=== PATIENT | female | born 1945 | race Caucasian/White ===

== ENCOUNTER → 2017-01-07 | Outpatient (CLI) | payer MEDICARE, BC ==
[~2017-01-07] MED LIST: MAXZIDE; PREDNISONE1 MG PO
== END ==
LOC: MC.RAD 10:55
DX: Z12.31 Encounter for screening mammogram for malignant neoplasm of breast (principal); N63 Unspecified lump in breast

== ENCOUNTER → 2017-01-09 | Outpatient (CLI) | payer MEDICARE, BC | LOC: MC.RAD 13:35 | DX: N60.02 Solitary cyst of left breast (principal) ==

== ENCOUNTER → 2018-08-14 | Outpatient (CLI) | payer MEDICARE, BC | LOC: MC.RAD 11:00 | DX: Z12.31 Encounter for screening mammogram for malignant neoplasm of breast (principal) ==

== ENCOUNTER 2019-06-21 10:19 | Day surgery (SDC) | payer MEDICARE, BC ==
[~2019-06-21] VITALS: Ht 160 cm; Wt 79.3 kg
--- NOTE | 2019-06-21 11:18 | NUR ---
community health worker met with patient and spouse and provided written and verbal education on durable power of desktop administrator for health care and living will. Worker assisted patient in completion of both documents and provided copies and original to patient. Worker obtained copies and they were placed on the chart.
--- NOTE | 2019-06-21 11:20 | NUR ---
TO RM 8 - [employer] HERE TO TALK WITH PATIENT AND CONCERNING ADVANCE DIRECTIVES.
[2019-06-21 11:26] VITALS: BP 154/69; PULSE 94; TEMP 97.6
[2019-06-21] MEDS ORDERED: VENTOLIN0.09 MG IH (11:43)
[2019-06-21] MEDS ORDERED: TYLENOL 500MG500 MG PO (11:43)
[2019-06-21] MEDS ORDERED: ASPIRIN E.C. 8181 MG PO (11:44)
[2019-06-21] MEDS ORDERED: NORVASC2.5 MG PO (11:44)
[2019-06-21] MEDS ORDERED: CELEBREX 1100 MG/CAP PO (11:45)
[2019-06-21] MEDS ORDERED: PULMICORT180 MCG/Ac IH (11:45)
[2019-06-21] MEDS ORDERED: JUBLIA TOP (11:54)
[2019-06-21] MEDS ORDERED: LOPROX CR 15GM TOP (11:54)
[2019-06-21] MEDS ORDERED: FLONASEALLERGY NS (11:55)
[2019-06-21] MEDS ORDERED: PRINZIDE 25 MG-1 TAB PO (11:55)
[2019-06-21] MEDS ORDERED: OMEGA-31 SGL PO (11:57)
[2019-06-21] MEDS ORDERED: PREDNISONE10 MG (11:58)
[2019-06-21] MEDS ORDERED: ZANTAC 150MG T150 MG PO (11:59)
[2019-06-21] MEDS ORDERED: ZANAFLEX2 MG PO (11:59)
--- NOTE | 2019-06-21 12:04 | NUR ---
TAKEN TO PACU TO HAVE A BLOCK PLACED BY SAROJ MONTESINOS.
[2019-06-21] MEDS ORDERED: ULTRAM 50MG TAB50 MG PO (14:12)
[2019-06-21 15:10] VITALS: BP 138/75; PULSE 82; TEMP 97.3
--- NOTE | 2019-06-21 15:10 | NUR ---
Patient arrives back to [facility] drowsy, radha nausea, complains of right shoulder pain 4/10. Patient monitor and O2 applied, vitals stable. Patient's spouse at bedside. Bandaids x3 across patient upper abdomen, clean/dry/intact. Patient given water and crackers. Patient educated that she needs to wake up a little more and get some food in her stomach before getting a pain pill.
[2019-06-21 15:25] VITALS: BP 129/65; PULSE 78
[2019-06-21 15:40] VITALS: BP 131/65; PULSE 82
--- NOTE | 2019-06-21 15:40 | NUR ---
Patient waking up more at this time and starting to eat and drink well. Oxygen therapy discontinued at this time. Vitals stable. Patient educated to cough and deep breathe frequently.
[2019-06-21 15:55] VITALS: BP 120/62; PULSE 80
--- NOTE | 2019-06-21 16:00 | NUR ---
Patient alert at this time and has tolerated water and crackers well, denies nausea. Still reports mild pain in right shoulder. Patient given PRN pain medication. Vitals stable.
[2019-06-21 16:15] VITALS: PULSE 80
--- NOTE | 2019-06-21 16:20 | NUR ---
Patient reports pain is getting better and that she ready to go home.
--- NOTE | 2019-06-21 16:25 | NUR ---
Dismissal instructions gone over with patient and patient's spouse. Both verbalize understanding and all questions answered.
--- NOTE | 2019-06-21 16:30 | NUR ---
Patient discharged to home via wheelchair to private vehicle that her is driving without any complications. Patient and family leave thanking staff for services.
== END 2019-06-21 16:30 | disposition home or self-care (01) ==
LOC: SDCO 10:19
DX: K40.90 Unilateral inguinal hernia, without obstruction or gangrene, not specified as recurrent (principal); D17.79 Benign lipomatous neoplasm of other sites; K66.0 Peritoneal adhesions (postprocedural) (postinfection); I10 Essential (primary) hypertension; J45.909 Unspecified asthma, uncomplicated; E78.5 Hyperlipidemia, unspecified; M19.90 Unspecified osteoarthritis, unspecified site; Z90.89 Acquired absence of other organs; Z79.899 Other long term (current) drug therapy; Z85.828 Personal history of other malignant neoplasm of skin; Z79.82 Long term (current) use of aspirin; Z80.42 Family history of malignant neoplasm of prostate; Z80.41 Family history of malignant neoplasm of ovary; Z82.3 Family history of stroke
CPT/HCPCS: C1781; J0690; J1100; J1170; J1885; J2250; J2405; J2704; J2795; J3010; J7120

== ENCOUNTER 2023-05-14 17:28 | Emergency (ER) | payer MEDICARE, BC ==
[~2023-05-14] VITALS: Ht 160 cm; Wt 73.2 kg
[~2023-05-14 17:28] MED LIST changes: +ASPIRIN E.C. 8181 MG PO; +CELEBREX 1100 MG/CAP PO; +FLONASEALLERGY NS; +JUBLIA TOP; +LOPROX CR 15GM TOP; +NORVASC2.5 MG PO; +OMEGA-31 SGL PO; +PREDNISONE10 MG; +PRINZIDE 25 MG-1 TAB PO; +PULMICORT180 MCG/Ac IH; +TYLENOL 500MG500 MG PO; +ULTRAM 50MG TAB50 MG PO; +VENTOLIN0.09 MG IH; +ZANAFLEX2 MG PO; +ZANTAC 150MG T150 MG PO
[2023-05-14 17:34] VITALS: TEMP 98
[2023-05-14 18:05] LABS: HEMATOCRIT 39.3 % (37.0-47.0); HEMOGLOBIN 13.4 g/dl (12.5-16.0); MEAN CELL VOLUME 84 fl (80.0-100.0); MEAN CORPUSCULAR HEMOGLOBIN 29 pg (27-31); MEAN CORPUSCULAR HGB CONC 34 g/dl (33.0-37.0); MEAN PLATELET VOLUME 8.5 fl (7.4-10.4); PLATELET COUNT 332 K/mm3 (130-400); RED BLOOD COUNT 4.66 M/mm3 (4.10-5.30); REDCELL DISTRIBUTION WIDTH-CV 17.2 % (11.5-14.5)
[2023-05-14 18:24] LABS: ANISOCYTOSIS 1+; BAND 2 % (0-10); LYMPHOCYTE 39 % (20.0-51.0); NEUTROPHILS 56 % (42.0-75.2); PLATELET ESTIMATE NORMAL (NORMAL)
[2023-05-14 18:31] LABS: BILIRUBIN,TOTAL 0.3 mg/dL (0.2-1.2); C-REACTIVE PROTEIN 0.05 mg/dL (0.00-0.50); CALCIUM 9.4 mg/dL (8.4-10.2); CREATININE, serum 0.84 mg/dL (0.57-1.11); POTASSIUM 4.1 mmol/L (3.5-4.5); TOTAL PROTEIN 7.3 gm/dL (6.2-8.1)
[2023-05-14 19:03] LABS: COLLECTION METHOD CLEAN CATCH
[2023-05-14 19:10] LABS: URINE APPEARANCE Clear (CLEAR/HAZY); URINE BLOOD TRACE-INTACT (NEGATIVE); URINE COLOR Yellow (YELLOW); URINE GLUCOSE Negative (NEGATIVE); URINE KETONE Negative (NEGATIVE); URINE NITRATE Negative (NEGATIVE); URINE PROTEIN(semi-quant) Negative (NEGATIVE); URINE UROBILINOGEN 0.2 E.U/dL (0.2-1.0)
[2023-05-14 19:17] LABS: SQUAMOUS EPITHELIAL None Seen /hpf (0-10); URINE BACTERIA None Seen /hpf (NONE SEEN); URINE RBC None Seen /hpf (0-2)
[2023-05-14 21:08] VITALS: BP 128/75; PULSE 56
== END 2023-05-14 21:21 | disposition home or self-care (01) ==
LOC: COL.ER 17:28
PROVIDERS: Nurse Practitioner Primary Care
DX: R10.9 Unspecified abdominal pain (principal); M54.9 Dorsalgia, unspecified
CPT/HCPCS: J1885; J7030; Q9967

== ENCOUNTER → 2023-08-29 | Outpatient (CLI) | payer MEDICARE, BC | LOC: COL.LAB 08:34 | DX: J30.1 Allergic rhinitis due to pollen (principal) ==

== ENCOUNTER 2023-12-30 18:07 | Observation (INO) | payer MEDICARE, BC ==
[~2023-12-30] VITALS: Ht 160 cm; Wt 70.5 kg
[2023-12-30 18:52] LABS: HEMATOCRIT 42.7 % (37.0-47.0); HEMOGLOBIN 14.4 g/dl (12.5-16.0); MEAN CELL VOLUME 91 fl (80.0-100.0); MEAN CORPUSCULAR HEMOGLOBIN 31 pg (27-31); MEAN CORPUSCULAR HGB CONC 34 g/dl (33.0-37.0); MEAN PLATELET VOLUME 8.9 fl (7.4-10.4); PLATELET COUNT 338 K/mm3 (130-400); RED BLOOD COUNT 4.71 M/mm3 (4.10-5.30); REDCELL DISTRIBUTION WIDTH-CV 12.2 % (11.5-14.5)
[2023-12-30 19:07] LABS: ALBUMIN 4.2 g/dL (3.4-4.8); BILIRUBIN,TOTAL 0.3 mg/dL (0.2-1.2); C-REACTIVE PROTEIN 0.21 mg/dL (0.00-0.50); CALCIUM 9.9 mg/dL (8.4-10.2); CREATININE, serum 1.02 mg/dL (0.57-1.11); POTASSIUM 3.6 mEq/L (3.5-4.5); TOTAL PROTEIN 7.8 g/dl (6.2-8.1)
[2023-12-30 19:27] LABS: EOSINOPHIL 2 % (0-4); LYMPHOCYTE 47 % (20.0-51.0); NEUTROPHILS 50 % (42.0-75.2); PLATELET ESTIMATE NORMAL (NORMAL)
[2023-12-30] MEDS ORDERED: Iohexol 300 - 100 ML VIAL IV ONE (19:35)
[2023-12-30] MEDS ORDERED: NS 100 ML IV ONE (19:35)
[2023-12-30 20:07] LABS: COLLECTION METHOD CLEAN CATCH
[2023-12-30 20:15] LABS: URINE APPEARANCE CLEAR (CLEAR/HAZY); URINE BLOOD TRACE (NEGATIVE); URINE COLOR YELLOW (YELLOW); URINE GLUCOSE NEGATIVE (NEGATIVE); URINE KETONE NEGATIVE (NEGATIVE); URINE NITRATE NEGATIVE (NEGATIVE); URINE PROTEIN(semi-quant) NEGATIVE (NEGATIVE); URINE UROBILINOGEN 0.2 E.U/dL (0.2-1.0)
[2023-12-30] MEDS ORDERED: Atorvastatin 80 MG TAB PO SCH (22:23)
[2023-12-30] MEDS ORDERED: Acetaminophen 325 MG TAB PO PRN (22:30)
[2023-12-30] MEDS ORDERED: Ondansetron 4 MG/2 ML VIAL IV PRN (22:30)
[2023-12-30] MEDS ORDERED: NS 1,000 ML IV SCH (22:30)
[2023-12-30 23:30] VITALS: BP 161/90; PULSE 70; TEMP 98.6
--- NOTE | 2023-12-30 23:30 | NUR ---
PATIENT ADMITED INTO ROOM 329 FROM ER FOR R/O TIA. PATIENT'S WHO HAS UNDERLINED DEMENTIA IS AT BEDSIDE PER HOUSE. ER WAS GOING TO UBER PATIENT HOME BUT THEN WERE NOT SURE HE SHOULD BE AT HOME ALONE. PATIENT & AMBULATORY. PATIENT EDUCATED ABOUT VISITOR POLICY AND VISITOR STATUS, SHE IS THE ADMITED PATIENT. UPON ARRIVAL TO FLOOR, THE PATIENT IS ASKING FOR SEVERAL THINGS FOR HER INCLUDING SUPPER, TOILETRIES, BEDDING, AND MORE. NURSING AGAIN, OFFERED BLANKETS & PILLOWS BUT REMINDED PATIENT HE IS NOT THE PATIENT AND I AM NOT PERMITTED TO PROVIDE HIM HOSPITAL/PATIENT SUPPLIES OR NURSING CARE. PATIENT IS A&O. NOTED ELEVATED B/P REPORTED BY ER, ALL OTHER VSS ON TELE. PATIENT ALSO REQUEST NURSING MOVE HER IV FROM HER LEFT AC TO ANOTHER PLACE DUE TO PAIN WHEN BENDING THE ARM. RESTARTED NEW IV SITE ON ARRIVAL INTO LEFT WRIST. IV FLUIDS INFUSING VIA PUMP. AHA DIET, LIQUIDS AT BEDSIDE. PATIENT VERY CONCERNED ABOUT GETTING HER HOME MEDS. UPDATE RXM AND NOTIFIED HOSPTIATLIST. PATIENT ALSO ASKING FOR EXTRA PILLOWS FOR BOTH HER & HER , PROVIDED. PATIENT ASKING IF SHE CAN USE A HEATING PAD, NURSING EDUCATED HER ABOUT OUT POLICY RESTRICTING HEATING PADS. OFFERED WARM BLANKETS, GIVEN. HEAD TO TOE ASSESSMENT COMPLETE. CALL LIGHT IN REACH.
[2023-12-30] MEDS ORDERED: ASPIRIN 32325 MG/TAB PO (23:36)
[2023-12-30] MEDS ORDERED: DESYREL 50MG50 MG PO (23:42)
[2023-12-30] MEDS ORDERED: PEPCID40 MG PO (23:45)
[2023-12-31] VITALS (7 sets, daily range): BP systolic 106–161; BP diastolic 64–72; PULSE 61–67; TEMP 97.5–97.7
--- NOTE | 2023-12-31 | NUR ---
PATIENT OUT WANDERING IN HALLS INDEPENDENTLY LEAVING HER ALONE IN ROOM. PATIENT WANTING HER HOME MEDS, CALLED HOSPITALIST AGAIN, SEE MAR.
[2023-12-31] MEDS ORDERED: tiZANidine 4 MG TAB PO SCH (00:19)
[2023-12-31] MEDS ORDERED: Famotidine 20 MG TAB PO SCH (00:21)
[2023-12-31 06:24] LABS: HEMATOCRIT 37.2 % (37.0-47.0); HEMOGLOBIN 12.5 g/dl (12.5-16.0); MEAN CELL VOLUME 90 fl (80.0-100.0); MEAN CORPUSCULAR HEMOGLOBIN 30 pg (27-31); MEAN CORPUSCULAR HGB CONC 34 g/dl (33.0-37.0); MEAN PLATELET VOLUME 8.7 fl (7.4-10.4); PLATELET COUNT 259 K/mm3 (130-400); RED BLOOD COUNT 4.12 M/mm3 (4.10-5.30); REDCELL DISTRIBUTION WIDTH-CV 12.3 % (11.5-14.5)
[2023-12-31 06:39] LABS: CALCIUM 9.2 mg/dL (8.4-10.2); CREATININE, serum 1.27 mg/dL (0.57-1.11); POTASSIUM 4.3 mEq/L (3.5-4.5)
[2023-12-31] MEDS ORDERED: Budesonide Neb Susp 0.5 MG/2 ML AMP IH SCH (07:00)
--- NOTE | 2023-12-31 07:00 | NUR ---
RECEIVED REPORT FROM LIONEL VELARDE. PT RESTING IN BED AT THIS TIME. NEURO CHECK WNL. PT ALERT AND ORIENTED, CALL LIGHT IN REACH.
[2023-12-31 07:02] LABS: THYROID STIMULATING HORMONE 2.873 uIU/mL (0.350-4.940); TROPONIN-I 6 HR POST INITIAL 0.019 ng/mL (0.00-0.033)
[2023-12-31 07:22] LABS: BAND 1 % (0-10); EOSINOPHIL 1 % (0-4); LYMPHOCYTE 40 % (20.0-51.0); NEUTROPHILS 53 % (42.0-75.2); PLATELET ESTIMATE NORMAL (NORMAL)
[2023-12-31] MEDS ORDERED: BUDESONIDE 180 MCG IH SCH (09:00)
[2023-12-31] MEDS ORDERED: [UNRECOGNIZED DRUG - OTHER] IH SCH (09:00)
[2023-12-31] MEDS ORDERED: Omega-3 Fatty Acid Esters (OTC) 1,000 MG CAP PO SCH (09:00)
[2023-12-31] MEDS ORDERED: ALPRAZolam 0.5 MG TAB PO SCH (10:00)
[2023-12-31 10:01] LABS: CHOLESTEROL RISK RATIO 4.1
--- NOTE | 2023-12-31 10:06 | NUR ---
switchboard wire worker helper met with pt and her , Tyree [phone] at bedside to discuss discharge planning. Pt was up ambulating independently in the room and did not engage in discussion. Pt reports to live with her in [place]. She sees Dr. Bowser for PCP needs and obtains medications from [facility] with no difficulties. She confirmed her insurance as Medicare A/B and BCBS. She reports to be indpendent with ADLS and uses no DME. She reports to have worked with therapy already. She has a DPOA-HC on file listing her and daughter, Kanwal. Pt reports her daughter is the health care designee. SW notes pt's potentially has dementia at baseline. Pt had no further concerns and discussed HH, but reported to be a community ambulator still. Discharge Plan: home
--- NOTE | 2023-12-31 10:21 | NUR ---
D: Sound Effects Person stopped by room on rounds. A: Pt was resting and content. Pt has no needs right now. P: Sound Effects Person informed pt that if she needed anything from the digital media buyer area to let her nurse know. Sound Effects Person will follow up as needed.
[2023-12-31] MEDS ORDERED: Clopidogrel 75 MG TAB PO SCH (12:29)
[2023-12-31] MEDS ORDERED: LIPITOR 80MG80 MG PO (13:25)
[2023-12-31] MEDS ORDERED: PLAVIX 75MG TAB75 MG PO (13:25)
[2023-12-31] MEDS ORDERED: traZODone 50 MG TAB PO SCH (21:00)
== END 2023-12-31 16:00 | disposition home or self-care (01) ==
LOC: COL.ER 18:07 → SURG 22:22
PROVIDERS: Nurse Practitioner; Physician Assistant; ADMIT Internal Medicine
DX: G45.9 Transient cerebral ischemic attack, unspecified (principal); E78.5 Hyperlipidemia, unspecified; D72.829 Elevated white blood cell count, unspecified; I10 Essential (primary) hypertension; I16.0 Hypertensive urgency; M48.00 Spinal stenosis, site unspecified; J44.9 Chronic obstructive pulmonary disease, unspecified; R41.3 Other amnesia; R29.700 NIHSS score 0; Z85.6 Personal history of leukemia; Z79.82 Long term (current) use of aspirin; Z79.899 Other long term (current) drug therapy
CPT/HCPCS: G0378; J1650; J7030; Q9967

== ENCOUNTER 2024-01-04 08:31 | Emergency (ER) | payer MEDICARE, BC ==
[~2024-01-04] VITALS: Ht 160 cm; Wt 71.4 kg
[~2024-01-04 08:31] MED LIST changes: +ASPIRIN 32325 MG/TAB PO; +DESYREL 50MG50 MG PO; +LIPITOR 80MG80 MG PO; +PEPCID40 MG PO; +PLAVIX 75MG TAB75 MG PO
[2024-01-04 08:36] VITALS: TEMP 98
[2024-01-04 09:02] LABS: HEMATOCRIT 42.1 % (37.0-47.0); HEMOGLOBIN 14.4 g/dl (12.5-16.0); MEAN CELL VOLUME 91 fl (80.0-100.0); MEAN CORPUSCULAR HEMOGLOBIN 31 pg (27-31); MEAN CORPUSCULAR HGB CONC 34 g/dl (33.0-37.0); PLATELET COUNT 273 K/mm3 (130-400); RED BLOOD COUNT 4.62 M/mm3 (4.10-5.30); REDCELL DISTRIBUTION WIDTH-CV 12.4 % (11.5-14.5)
[2024-01-04 09:20] LABS: BILIRUBIN,TOTAL 0.4 mg/dL (0.2-1.2); CALCIUM 9.9 mg/dL (8.4-10.2); CREATININE, serum 0.99 mg/dL (0.57-1.11); POTASSIUM 3.8 mEq/L (3.5-4.5); TOTAL PROTEIN 7.6 g/dl (6.2-8.1)
[2024-01-04 10:07] LABS: EOSINOPHIL 2 % (0-4); LYMPHOCYTE 37 % (20.0-51.0); NEUTROPHILS 56 % (42.0-75.2); PLATELET ESTIMATE NORMAL (NORMAL)
[2024-01-04 11:11] VITALS: BP 109/69; PULSE 68
== END 2024-01-04 11:11 | disposition home or self-care (01) ==
LOC: COL.ER 08:31
PROVIDERS: Personal Emergency Response Attendant
DX: R42 Dizziness and giddiness (principal); Z79.82 Long term (current) use of aspirin; Z79.02 Long term (current) use of antithrombotics/antiplatelets